=== PATIENT | male | born 1980 | race Two or more races ===

== ENCOUNTER 2017-09-12 05:31 | Emergency (ER) | payer BC ==
[~2017-09-12] VITALS: Ht 182.9 cm; Wt 123.8 kg
[2017-09-12 05:45] LABS: BASOPHILS # (AUTO) 0.1 K/uL (0.0-8.0); BASOPHILS % (AUTO) 0.7 % (0.0-2.0); EOSINOPHILS # (AUTO) 0.2 K/uL (0.0-0.7); EOSINOPHILS % (AUTO) 1.8 % (0.0-7.0); HEMATOCRIT 43.5 % (40-50); HEMOGLOBIN 14.7 G/DL (14.0-18.0); LYMPHOCYTES # (AUTO) 3.3 K/UL (0.8-4.8); LYMPHOCYTES % (AUTO) 39.7 % (20.5-51.5); MEAN CORPUSCULAR HEMOGLOBIN 29.6 UUG (27.0-31.0); MEAN CORPUSCULAR HGB CONC 34 g/dL (32.0-37.0); MEAN CORPUSCULAR VOLUME 87.6 FL (82.0-92.0); MONOCYTES # (AUTO) 0.7 K/UL (0.1-1.30); MONOCYTES % (AUTO) 8.1 % (0.0-11.0); NEUTROPHILS # (AUTO) 4.1 K/UL (1.8-8.9); NEUTROPHILS % (AUTO) 49.7 % (38.5-71.5); PLATELET COUNT (AUTO) 309 K/UL (150-450); RED BLOOD CELL COUNT(AUTO) 4.97 MIL/UL (4.7-6.1); WHITE BLOOD COUNT (AUTO) 8.4 K/UL (4.0-11.2)
[2017-09-12] MEDS ORDERED: KETOROLAC TROMETHAMINE 15 MG INJ IV ONE (05:45)
[2017-09-12] MEDS ORDERED: HYDROMORPHONE 1 MG/1 ML DISP.SYRIN IV ONE ×3 (05:45→08:00)
[2017-09-12] MEDS ORDERED: ONDANSETRON 4 MG/2 ML VIAL IV ONE (05:45)
[2017-09-12] MEDS ORDERED: IV NORMAL SALINE 1000 ML BAG IV ONE ×2 (05:45→06:30)
[2017-09-12] MEDS ORDERED: KETOROLAC TROMETHAMINE 30 MG INJ ONE (05:50)
[2017-09-12] MEDS ORDERED: ONDANSETRON 4 MG/2 ML VIAL ONE ×2 (05:51→07:18)
[2017-09-12] MEDS ORDERED: HYDROMORPHONE 1 MG/1 ML DISP.SYRIN ONE ×2 (05:51→06:57)
[2017-09-12 05:55] LABS: CREATININE 1.2 mg/dL (0.6-1.3); POTASSIUM 3.5 mmol/L (3.5-5.1)
[2017-09-12 06:01] LABS: BILIRUBIN,DIRECT 0.1 mg/dL (0.0-0.2); BILIRUBIN,TOTAL 0.8 mg/dL (0.2-1.0); TOTAL PROTEIN, SERUM 7.9 g/dL (6.4-8.2)
[2017-09-12] MEDS ORDERED: TAMSULOSIN HCL 0.4 MG CAP.SR.24H PO ONE (06:15)
[2017-09-12] MEDS ORDERED: ONDANSETRON IV *ER 4 MG/2 ML VIAL IV ONE (06:45)
[2017-09-12] MEDS ORDERED: TAMSULOSIN HCL 0.4 MG CAP.SR.24H ONE (06:51)
--- NOTE | 2017-09-12 07:50 | NUR ---
Patient is resting comfortably in bed with eyes closed.
[2017-09-12] MEDS ORDERED: HYDROMORPHONE 2 MG/1 ML DISP.SYRIN ONE (08:12)
--- NOTE | 2017-09-12 09:03 | NUR ---
IV removed. Catheter intact and site benign. Pressure and 4x4 gauze applied to site. No bleeding noted.
[2017-09-12 09:04] VITALS: BP 107/68
--- NOTE | 2017-09-12 09:04 | NUR ---
Patient discharged to home in stable conditon. Written and verbal after care instructions given. Patient verbalizes understanding of instructions. PT LEFT ER W/ STEADY GAIT.
== END 2017-09-12 09:05 | disposition home or self-care (01) ==
LOC: ER 05:35
DX: R10.9 Unspecified abdominal pain (principal)
CPT/HCPCS: 36415; 83690; 85025; A4663; J1170; J1885; J2405; J7030

== ENCOUNTER 2019-06-21 13:15 | Emergency (ER) | payer BC, OTHER ==
[~2019-06-21] VITALS: Ht 182.9 cm; Wt 117.9 kg
[2019-06-21] MEDS ORDERED: IV NORMAL SALINE 1000 ML BAG IV ONE ×2 (13:45→15:00)
[2019-06-21] MEDS ORDERED: ONDANSETRON 4 MG/2 ML VIAL ONE ×2 (13:45→15:04)
[2019-06-21] MEDS ORDERED: ONDANSETRON 4 MG/2 ML VIAL IV ONE ×2 (13:45→15:00)
[2019-06-21] MEDS ORDERED: HYDROMORPHONE 1 MG/1 ML DISP.SYRIN IV ONE ×2 (13:45→15:00)
[2019-06-21 13:49] LABS: BASOPHILS # (AUTO) 0.1 K/uL (0.0-8.0); BASOPHILS % (AUTO) 0.7 % (0.0-2.0); EOSINOPHILS # (AUTO) 0.1 K/uL (0.0-0.7); EOSINOPHILS % (AUTO) 0.5 % (0.0-7.0); HEMATOCRIT 46.8 % (36.7-47.1); HEMOGLOBIN 15.9 g/dL (12.5-16.3); LYMPHOCYTES # (AUTO) 2.5 K/uL (20.0-40.0); LYMPHOCYTES % (AUTO) 22.4 % (20.5-51.5); MEAN CORPUSCULAR HEMOGLOBIN 29.5 uug (23.8-33.4); MEAN CORPUSCULAR HGB CONC 34 g/dL (32.5-36.3); MEAN CORPUSCULAR VOLUME 86.7 fL (73.0-96.2); MONOCYTES # (AUTO) 0.8 K/uL (2.0-10.0); NEUTROPHILS # (AUTO) 7.7 K/uL (1.8-8.9); NEUTROPHILS % (AUTO) 69.4 % (38.5-71.5); PLATELET COUNT (AUTO) 310 K/uL (152-348)
--- NOTE | 2019-06-21 13:51 | NUR ---
PT IS IN ROOM #2B. DR ENCINAS EVALUATED THE PT.
[2019-06-21 13:54] LABS: POTASSIUM 3.1 mmol/L (3.5-5.1)
[2019-06-21] MEDS ORDERED: HYDROMORPHONE 1 MG/1 ML DISP.SYRIN ONE ×2 (13:57→15:03)
[2019-06-21 13:59] LABS: BILIRUBIN,DIRECT 0.2 mg/dL (0.0-0.2); BILIRUBIN,TOTAL 0.9 mg/dL (0.2-1.0); TOTAL PROTEIN, SERUM 8.6 g/dL (6.4-8.2)
--- NOTE | 2019-06-21 16:51 | NUR ---
IV removed. Catheter intact and site benign. Pressure and 4x4 gauze applied to site. No bleeding noted.
--- NOTE | 2019-06-21 16:51 | NUR ---
Patient discharged to home in stable conditon with family. Written and verbal after care instructions given. Patient verbalizes understanding of instructions.
[2019-06-21 16:53] VITALS: BP 118/79
== END 2019-06-21 16:53 | disposition home or self-care (01) ==
LOC: ER 13:15
DX: A08.4 Viral intestinal infection, unspecified (principal)
CPT/HCPCS: 36415; 71045; 74176; 80048; 80076; 83690; 85025; 96361; 96374; 96375; 96376; 99284; J1170 ×2; J2405 ×2; A4663; J7030